=== PATIENT | male | born 1995 | race Caucasian/White ===

== ENCOUNTER 2016-11-13 16:23 | Emergency (ER) | payer OTHER ==
[~2016-11-13] VITALS: Ht 184.2 cm; Wt 83.0 kg
[~2016-11-13 16:23] MED LIST: CHOLTAB3 PO
[2016-11-13 16:35] VITALS: BP 120/82; PULSE 69; TEMP 36.9; O2SAT 99; Ht 184.2 cm; Wt 83.0 kg
--- NOTE | 2016-11-13 17:19 | DIAGNOSTIC IMAGING REPORT ---
LEFT SHOULDER MIN 2 VIEWS ROUTINE CLINICAL HISTORY: Left anterior shoulder pain. COMPARISON: None FINDINGS: Alignment of the left shoulder is anatomic. There is no fracture or suspicious lesion. Equivocal slight elevation of the distal left clavicle with respect to the acromion is noted. IMPRESSION: 1. No acute fracture. Anatomic alignment of the left glenohumeral joint. 2. Equivocal slight elevation of the distal left clavicle with respect to the acromion. This is likely normal although a mild AC joint separation could have this appearance. Electronically signed by: John Florence M.D. 11/13/2016 5:18 PM Dictated Date/Time: 11/13/2016 5:14 PM
--- NOTE | 2016-11-13 17:36 | EMERGENCY ROOM VISIT NOTE ---
History First contact with patient: 16:38 Chief Complaint: SHOULDER PAIN Stated Complaint: LF SHOULDER PAIN History of Present Illness The patient is a 21 year old male who presents to the Emergency Room with complaints of persistent left anterior shoulder pain after injuring his shoulder wrestling a friend one month ago. The patient reports that his left hand was behind his friend shoulder, and has he was falling, he attempted to remove his left arm/hand from behind his friend's head, and felt something sharp in his left shoulder. The patient denies any history of left shoulder problems. He currently denies any pain extending into the neck or posterior shoulder region. He denies any paresthesias or numbness of the left hand or fingers. The patient is left-hand dominant. The patient has not seen anyone for this injury, and currently rates his discomfort a 2 out of 10. Review of Systems 10 system review was performed and was negative except for pertinent positives and negatives as indicated in history of present illness Past Medical/Surgical History Medical Problems: (1) No chronic problems Family History No pertinent family history Social History Smoking Status: Never Smoker Alcohol Use: occasionally Marital Status: single Occupation Status: [employer] student Current/Historical Medications No Active Prescriptions or Reported Meds Allergies Coded Allergies: No Known Allergies (Unverified , 11/13/16) Physical Exam Vital Signs Date Time Temp Pulse Resp B/P (MAP) Pulse Ox O2 Delivery O2 Flow Rate FiO2 11/13/16 16:35 36.9 69 16 120/82 99 Room Air Physical Exam CONSTITUTIONAL: Healthy and well nourished. Alert and oriented X 3 with positive affect. Patient does not appear in any acute distress. HEENT: Normocephalic, atraumatic. Pupils equal, round and reactive. NECK: Full active range of motion without discomfort. MUSCULOSKELETAL: Examination shows mild tenderness to palpation through the left bicipital groove and upper biceps region. There is no muscle bulging or evidence for prior ecchymosis. Patient has no significant discomfort with resisted flexion. He has no tenderness to palpation across the left anterior chest wall, distal clavicle, acromioclavicular joint, acromial process or posterior shoulder region. He has mild discomfort with apprehension test. Negative drop arm test. He otherwise exhibits full active range of motion. Distal pulses are intact. INTEGUMENTARY: No rash or other significant dermatologic conditions noted. NEUROLOGIC: Left deltoid sensation is intact. Left hand median, radial and ulnar motor and sensory are intact. Medical Decision & Procedures ER Provider Diagnostic Interpretation: My interpretation of left shoulder x-rays does not show any obvious fractures, dislocation or bony lesions of the humeral head. Radiologist report is as follows: LEFT SHOULDER MIN 2 VIEWS ROUTINE CLINICAL HISTORY: Left anterior shoulder pain. COMPARISON: None FINDINGS: Alignment of the left shoulder is anatomic. There is no fracture or suspicious lesion. Equivocal slight elevation of the distal left clavicle with respect to the acromion is noted. IMPRESSION: 1. No acute fracture. Anatomic alignment of the left glenohumeral joint. 2. Equivocal slight elevation of the distal left clavicle with respect to the acromion. This is likely normal although a mild AC joint separation could have this appearance. ED Course Patient history and physical exam were performed. Nurse's notes were reviewed. Vital signs were reviewed and were normal. The patient refused any analgesics on initial exam. X-rays of the left shoulder were normal. Radiologist does question a mild elevation of the distal clavicle with respect to the acromial process. Reexamination does not show any tenderness to palpation over the acromioclavicular joint. The patient was provided contact information for the [facility] for further follow-up since his symptoms have not improved within the past month. He was instructed to refrain from any significant activities with the left upper extremity. He was encouraged to intermittently apply ice to the shoulder. Ibuprofen and Tylenol in alternating fashion if needed for additional pain relief. The patient was happy with plan of care, voiced understanding of all discharge instructions, and rated his pain a 2 out of 10 at the conclusion of my exam. Medical Decision Patient presents with complaint of persistent left shoulder pain. His x-rays are not suggestive of a fracture or dislocation. Tendinitis or rotator cuff arthropathy is considered. Impression Primary Impression: Left anterior shoulder pain Departure Information Prescriptions No Active Prescriptions or Reported Meds Referrals No Doctor, Assigned (PCP) Patient Instructions My [facility]
== END 2016-11-13 17:38 | disposition home or self-care (01) ==
LOC: C.EDB 16:25 → C.EDD 17:38
DX: M25.512 Pain in left shoulder (principal)

== ENCOUNTER 2016-12-23 23:54 | Emergency (ER) | payer OTHER ==
[~2016-12-23] VITALS: Ht 177.8 cm; Wt 80.4 kg
[2016-12-24 00:03] VITALS: TEMP 37.3; Ht 177.8 cm; Wt 80.4 kg
[2016-12-24] MEDS ORDERED: PHEN-622 PO (00:21)
[2016-12-24] MEDS ORDERED: IBUPROFEN 600 MG TAB PO STA (00:32)
[2016-12-24] MEDS ORDERED: AZITHROMYCIN 250 MG TAB PO STA (00:32)
[2016-12-24] MEDS ORDERED: AZIT250T5 PO (00:36)
[2016-12-24 00:51] VITALS: BP 117/62; PULSE 95; O2SAT 98
--- NOTE | 2016-12-24 02:38 | EMERGENCY ROOM VISIT NOTE ---
History Report prepared by Ovi: Dean Romero Under the Supervision of: Dr. Romain Dowell M.D. First contact with patient: 00:08 Chief Complaint: SORETHROAT Stated Complaint: SORE THROAT History of Present Illness The patient is a 21 year old male who presents to the Emergency Room with complaints of a constant sore throat starting yesterday. The patient additionally is complaining of a headache, congestion, and he feels hot. He states that he has taken over the counter medication which has not helped. He states that he has never had strep throat before, and he is feeling mildly fatigued. Pt denies LOC, chills, diaphoresis, visual changes, ear pain, neck pain, chest pain, breathing difficulties, nausea, vomiting, abdominal pain, back pain, melena, hematochezia, urinary symptoms, numbness, weakness, lymphadenopathy, rash, or other complaints. He states that no one else around him is sick. Source of History: patient Onset: yesterday Position: throat Timing: constant Associated Symptoms: + headache Note: Associated symptoms: congestion and feels hot Review of Systems See HPI for pertinent positives and negatives. A total of ten systems were reviewed and were otherwise negative. Past Medical & Surgical Medical Problems: (1) No chronic problems Family History No pertinent family history Social History Smoking Status: Never Smoker Alcohol Use: occasionally Marital Status: single Occupation Status: [employer] student Current/Historical Medications Scheduled Azithromycin (Zithromax), 250 MG PO DAILY Scheduled PRN Qyrarvrprtyql-Ol-Dx W/ Apap (Vicks Dayquil Severe Cold), 1 TAB PO DIRECTED PRN for COLD SYMPTOMS Allergies Coded Allergies: No Known Allergies (Unverified , 12/24/16) Physical Exam Vital Signs Date Time Temp Pulse Resp B/P (MAP) Pulse Ox O2 Delivery O2 Flow Rate FiO2 12/24/16 00:51 95 18 117/62 98 12/24/16 00:03 37.3 75 18 118/78 95 Room Air 12/24/16 00:03 95 Physical Exam GENERAL: Awake, alert, well-appearing, in no distress HENT:Normocephalic, atraumatic. Both tonsils are inflamed and uvula is midline. Mild posterior erythema.Tongue is normal. No stridor. EYES: Normal conjunctiva. Sclera non-icteric. NECK: Moderate tenderness and anterior adenopathy. No posterior adenopathy. Supple. No nuchal rigidity. FROM. No JVD. RESPIRATORY: Clear to auscultation. CARDIAC: Regular rate, normal rhythm. Extremities warm and well perfused. Pulses equal. ABDOMEN: No splenomegaly. Soft, non-distended. No tenderness to palpation. No rebound or guarding. No masses. RECTAL: Deferred. MUSCULOSKELETAL: Chest examination reveals no tenderness. The back is symmetrical on inspection without obvious abnormality. There is no CVA tenderness to palpation. No joint edema. LOWER EXTREMITIES: Calves are equal size bilaterally and non-tender. No edema. No discoloration. NEURO: Normal sensorium. No sensory or motor deficits noted. SKIN: No rash or jaundice noted. Medical Decision & Procedures Medications Administered Medications (Trade) Dose Ordered Sig/Indy Route Start Time Stop Time Status Last Admin Dose Admin Azithromycin (Zithromax Tab) 500 mg NOW STAT PO 12/24/16 00:32 12/24/16 00:34 DC 12/24/16 00:48 500 MG Ibuprofen (Motrin Tab) 600 mg NOW STAT PO 12/24/16 00:32 12/24/16 00:34 DC 12/24/16 00:48 600 MG ED Course 0024: The patient was evaluated in room C10. A complete history and physical exam was performed. I discussed the discharge instructions with him, and he was agreeable 0032: Motrin Tab 600mg PO, Zithromax Tab 500mg PO Medical Decision Triage Nursing notes reviewed and agree them. The patient's history was concerning for fever, chills, headache and sore throat. Differential diagnosis: Etiologies such as tonsillitis, streptococcal pharyngitis, peritonsillar abscess, viral syndrome, mononucleosis,retropharyngeal abscess, otitis, pneumonia, influenza, as well as others were entertained. ER treatment provided: Zithromax 500 mg orally Motrin 600 mg orally Diagnostics interpreted by me: Deferred The patient is a significant tonsillitis. He has no posterior adenopathy. He notes fevers, headache And has a lack of cough. He has no splenomegaly. I discussed treating him conservatively and the patient was in agreement.I gave my usual and customary discussion regarding this issue. By the evaluation outlined above emergent etiologies such as peritonsillar abscess, retropharyngeal abscess, otitis, pneumonia, meningitis, urinary tract infection, sepsis, bacteremia, as well as others were deemed relatively unlikely. The patient was informed about the findings as listed above. All questions were answered and he was pleased with the treatment. Return instructions were outlined and the patient was discharged in stable condition. Outpatient prescription management: Zithromax Referral: The patient was referred back to his primary care physician for follow-up in 2 to 3 days for a recheck of the current condition. The chart was completed utilizing [employer] Speech voice recognition software. Grammatical errors, random word insertions, pronoun errors, and incomplete sentences are an occasional consequence of this system due to software limitations, ambient noise, and hardware issues. Any formal questions or concerns about the content, text, or information contained within the body of this dictation should be directly addressed to the physician for clarification. Impression Primary Impression: Acute tonsillitis Scribe Attestation The scribe's documentation has been prepared under my direction and personally reviewed by me in its entirety. I confirm that the note above accurately reflects all work, treatment, procedures, and medical decision making performed by me. Departure Information Dispostion Home / Self-Care Prescriptions Azithromycin (ZITHROMAX) 250 Mg Tab 250 MG PO DAILY, #4 TAB Prov: Romain Dowell MD 12/24/16 Referrals No Doctor, Assigned (PCP) Forms HOME CARE DOCUMENTATION FORM, IMPORTANT VISIT INFORMATION Patient Instructions My [facility] Additional Instructions Azithromycin(Zithromax): Take one a day for 4 additional days for your infection. All antibiotics can cause diarrhea. If this occurs and you feel worse or it does not resolve in 1-2 days follow up with your doctor or return to the Emergency Department as this could be signs of serious underlying problems. Any medication can cause an allergic reaction, stop the pills immediately and return to the ER for rash, hives, breathing difficulties, or swelling. Acetaminophen(Tylenol) may be used for fever or pain. Use 1000mg every six hours as needed. Avoid using more than 4000mg in a 24 hour period. (AND/OR) Ibuprofen(Motrin, Advil) may be used for fever or pain. Use 600mg every six hours as needed. Take with food. Avoid using more than 2400mg in a 24 hour period. Do not use 2400mg per day for more than three consecutive days without physician direction. Prolonged inappropriate use can lead to stomach upset or ulcers. Afrin nasal spray: 2-3 sprays to each nostril twice daily as needed for congestion. Do not use for more than 3-4 days because it can lead to worsening rebound congestion. Rest and drink plenty of fluids. Controlling your fever with Tylenol and Ibuprofen as above will make you feel better. Wash your hands after nose blowing, sneezing, or coughing. Most germs are spread through contact, therefore improper hygiene may result in your close contacts and loved ones becoming ill just like you. Return to the ER for severe headache, neck stiffness, chest pain, difficulty breathing, fevers, vomiting, worsening of your condition, or as needed. Follow up with [facility] this week for a recheck of your current condition.
[2016-12-24] MEDS ORDERED: AZIT250T PO (16:02)
== END 2016-12-24 00:50 | disposition home or self-care (01) ==
LOC: C.EDB 23:54 → C.EDC 12-24 00:50
DX: J03.90 Acute tonsillitis, unspecified (principal)

== ENCOUNTER 2016-12-24 13:43 | Emergency (ER) | payer OTHER ==
[~2016-12-24] VITALS: Ht 182.9 cm; Wt 78.7 kg
[~2016-12-24 13:43] MED LIST changes: +AZIT250T5 PO; -CHOLTAB3 PO; +PHEN-622 PO
[2016-12-24 13:46] VITALS: Ht 182.9 cm; Wt 78.7 kg
[2016-12-24] MEDS ORDERED: ACETAMINOPHEN 500 MG TAB PO ONE (15:53)
[2016-12-24] MEDS ORDERED: AZIT250T PO (16:02)
--- NOTE | 2016-12-24 16:03 | EMERGENCY ROOM VISIT NOTE ---
History First contact with patient: 15:51 Chief Complaint: FEVER Stated Complaint: HIGH TEMP. History of Present Illness The patient is a 21 year old male who presents to the Emergency Room with complaints of a fever. The patient states that he developed pain with swallowing yesterday. He was seen here and prescribed an antibiotic and a nasal spray. He states that since being discharged, he has had fevers. He has not been taking his temperature, but reports he feels feverish. He rates his overall discomfort an 8/10. He has not been taking any medications for his fevers. He denies any neck pain/stiffness, headaches, abdominal pain, nausea or vomiting. Review of Systems A complete 10 point review of systems was reviewed with the patient with pertinent positives and negatives as per history of present illness. All else were negative. Past Medical/Surgical History Medical Problems: (1) No chronic problems Family History No pertinent family history Social History Smoking Status: Never Smoker Alcohol Use: occasionally Marital Status: single Occupation Status: [employer] student Current/Historical Medications Scheduled Azithromycin (Zithromax), 250 MG PO DAILY Physical Exam Vital Signs Date Time Temp Pulse Resp B/P (MAP) Pulse Ox O2 Delivery O2 Flow Rate FiO2 12/24/16 16:11 37.8 98 16 134/72 99 12/24/16 15:58 37.8 98 16 134/72 99 12/24/16 13:46 38.3 101 18 111/68 97 Room Air Physical Exam VITALS: Vitals are noted on the nurse's note and reviewed by myself. Vital signs stable. GENERAL: This is a 21-year-old male, in no acute distress, nondiaphoretic, well- developed well-nourished. SKIN: The skin was without rashes. EARS: External auditory canals clear, tympanic membranes pearly myers without erythema or effusion bilaterally. EYES: Pupils equal round and reactive to light and accommodation. Conjunctivae without injection, sclerae without icterus. Extraocular movements intact. NOSE: Patent, turbinates without inflammation or discharge. MOUTH: Mucous membranes moist. Tonsils are mildly enlarged bilaterally with exudate present on the right tonsil. Airway patent. No uvular deviation. NECK: Supple without nuchal rigidity. No lymphadenopathy. HEART: Regular rate and rhythm without murmurs gallops or rubs. LUNGS: Clear to auscultation bilaterally without wheezes, rales or rhonchi. NEURO: Patient was alert and oriented to person place and time. Medical Decision & Procedures Medications Administered Medications (Trade) Dose Ordered Sig/Indy Route Start Time Stop Time Status Last Admin Dose Admin Acetaminophen (Tylenol Tab) 1,000 mg STK-MED ONCE PO 12/24/16 15:53 12/24/16 15:54 DC 12/24/16 16:03 1,000 MG Medical Decision Differential diagnosis includes strep pharyngitis, viral pharyngitis, infectious mononucleosis, among others. The patient was evaluated as above. He presents with sore throat and fever. Patient was seen here yesterday and placed on azithromycin. The patient's exam is consistent with strep pharyngitis and this antibiotic should cover this. The patient has not been taking anything for his fever. He was given 1 g Tylenol in the emergency department and instructed to alternate ibuprofen and Tylenol for pain and fever control. Conservative measures were discussed with the patient. He was advised to follow-up with [facility] as needed. He verbalized understanding of my assessment and treatment plan and was discharged home in good condition. Medication Reconcilliation Current Medication List: was personally reviewed by tn Blood Pressure Screening Patient's blood pressure: Normal blood pressure Impression Primary Impression: Acute tonsillitis Departure Information Dispostion Home / Self-Care Condition GOOD Referrals No Doctor, Assigned (PCP) Patient Instructions My [facility] Additional Instructions For fevers/pain control, you can use the following [id number] medicines ( if >12 yo): - Extra strength (500mg/tab) Tylenol (acetaminophen) 2 tabs every 6 hours as needed. Avoid taking more than 4 grams (4000 mg) of Tylenol per day. This includes any other sources of acetaminophen you may take on a regular basis. - Regular strength (200 mg/tab) Advil (ibuprofen) 3-4 tabs every 6 hours as needed. Do not exceed a dose of 3200 mg per day. You may alternate these medications for better fever control. For example, if you take Tylenol at 12:00, take ibuprofen at 3:00, then Tylenol at 6:00, etc. Continue the antibiotics prescribed to you at your previous visit. Follow-up with [facility] as needed. Return to the emergency department with difficulty breathing, inability to swallow, or any other new/concerning symptoms.
[2016-12-24 16:11] VITALS: BP 134/72; PULSE 98; TEMP 37.8; O2SAT 99
== END 2016-12-24 16:09 | disposition home or self-care (01) ==
LOC: C.EDB 13:44 → C.EDD 16:09
DX: J03.90 Acute tonsillitis, unspecified (principal)